=== PATIENT | female | born 2000 | race American Indian/Alaskan Native ===

== ENCOUNTER 2022-07-10 14:47 | Emergency (ER) | payer SELFPAY ==
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
[2022-07-10 15:49] VITALS: BP 107/68
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
== END 2022-07-12 07:00 | disposition left against medical advice (07) ==
LOC: ED 14:47
DX: M79.651 Pain in right thigh (principal); Z91.013 Allergy to seafood; Z79.899 Other long term (current) drug therapy; V87.7XXA Person injured in collision between other specified motor vehicles (traffic), initial encounter; Y93.89 Activity, other specified; Y92.488 Other paved roadways as the place of occurrence of the external cause; Y99.8 Other external cause status
CPT/HCPCS: 99283